=== PATIENT | male | born 1955 | race American Indian/Alaskan Native ===

== ENCOUNTER 2021-05-15 04:40 | Emergency (ER) | payer MEDICARE ==
[2021-05-15 05:08] VITALS: BP 135/79
--- NOTE | 2021-05-15 05:38 | XRay Report ---
ABDOMEN 3 VIEW(S) INDICATION / CLINICAL INFORMATION: Abd pain. PT STATES HE HAD COLONOSCOPY 8 DAYS AGO WHERE THEY REMOV ED POLYPS. PT HAS NOT HAD A BOWEL MOVEMENT SINCE COMPARISON: None available. FINDINGS: TUBES / LINES: None. BOWEL GAS PATTERN: No dilated small bowel. Moderate amount of fecal material throughout the colon. En doscopy clip projects over the lower pelvis possibly in the rectum. FREE AIR / EXTRALUMINAL GAS: None seen. ADDITIONAL FINDINGS: No significant additional findings. CHEST: Visualized chest shows no significant abnormality. IMPRESSION: 1. No bowel obstruction or free air. 2. Moderate amount of fecal material throughout the colon. Signer Name: Hossein Rodriguez MD Signed: 05/15/2021 5:34 AM Workstation Name: [id number]
[2021-05-15 06:04] LABS: Basophils % (Auto) 0.8 % (0.0-1.8); Eosinophils # (Auto) 0.2 K/mm3 (0.0-0.4); Eosinophils % (Auto) 5.7 % (0.0-4.3); Hematocrit 42.2 % (35.5-45.6); Hemoglobin 13.3 gm/dl (11.8-15.2); Lymphocytes # (Auto) 1.7 K/mm3 (1.2-5.4); Lymphocytes % (Auto) 38.9 % (13.4-35.0); Mean Corpuscular HGB Conc 32 % (32-34); Mean Corpuscular Volume 79 fl (84-94); Monocytes # (Auto) 0.4 K/mm3 (0.0-0.8); Monocytes % (Auto) 8.9 % (0.0-7.3); Platelet Count 173 K/mm3 (140-440); Red Blood Count 5.34 M/mm3 (3.65-5.03); Red Cell Distribution Width 14.4 % (13.2-15.2)
[2021-05-15 06:20] LABS: Alanine Aminotransferase 19 units/L (7-56); Albumin 4.4 g/dL (3.9-5); BUN/Creatinine Ratio 15; Blood Urea Nitrogen 15 mg/dL (9-20); Calcium 9.3 mg/dL (8.4-10.2); Hemolysis Index 2
--- NOTE | 2021-05-15 07:35 | Emergency Department Report ---
HPI - General Chief Complaint: Abdominal Pain Time Seen by Provider: 05/15/21 07:14 - HPI HPI: MSE 6 The patient is a 66-year-old male present with a chief complaint of constipation. The patient states he had a colonoscopy performed 05/07/[address] Nina. Patient states he has not had a bowel movement since the procedure. Patient states he tried MiraLAX over the weekend with no results. Patient states he saw his knot cutter yesterday recommended he try magnesium citrate. Patient states he took 2 to 3 ounces of magnesium citrate but has not had a bowel movement. Patient states he is passing gas. Patient admits to nausea but denies vomiting. ED Past Medical Hx - Past Medical History Previous Medical History?: No - Surgical History Past Surgical History?: No - Medications Home Medications: Home Medications Medication Instructions Recorded Confirmed Last Taken Type Polyethylene Glycol/Elect 4,000 ml PO ONCE #1 bottle 05/15/21 Unknown Rx [Golytely] ED Review of Systems ROS: Stated complaint: 9 DAYS POST COLONOSCOPY NO BM NAUSEA Other details as noted in HPI Physical Exam - Physical Exam Vital Signs: Vital Signs 05/15/21 05/15/21 05:03 05:06 Temperature 97.9 F Pulse Rate 58 L 57 L Respiratory 17 Rate Blood Pressure 135/79 [Right] O2 Sat by Pulse 100 99 Oximetry ED Course Vital Signs 05/15/21 05/15/21 05:03 05:06 Temperature 97.9 F Pulse Rate 58 L 57 L Respiratory 17 Rate Blood Pressure 135/79 [Right] O2 Sat by Pulse 100 99 Oximetry - Consultations Consultation #1: 05/15/21 07:33 GI paged ED Medical Decision Making - Lab Data Result diagrams: 05/15/21 05:28 05/15/21 05:28 Laboratory Tests 05/15/21 05/15/21 05:28 05:28 WBC 4.3 L RBC 5.34 H Hgb 13.3 Hct 42.2 MCV 79 L MCH 25 L MCHC 32 RDW 14.4 Plt Count 173 Lymph % (Auto) 38.9 H Braxton % (Auto) 8.9 H Eos % (Auto) 5.7 H Baso % (Auto) 0.8 Lymph # (Auto) 1.7 Braxton # (Auto) 0.4 Eos # (Auto) 0.2 Baso # (Auto) 0.0 Seg Neutrophils % 45.7 Seg Neutrophils # 2.0 Sodium 141 Potassium 4.0 Chloride 103.3 Carbon Dioxide 27 Anion Gap 15 BUN 15 Creatinine 1.0 Estimated GFR > 60 BUN/Creatinine Ratio 15 Glucose 94 Calcium 9.3 Total Bilirubin 0.30 AST 18 ALT 19 Alkaline Phosphatase 121 Total Protein 7.9 Albumin 4.4 Albumin/Globulin Ratio 1.3 - Radiology Data Radiology results: report reviewed (Acute abdominal series x-ray), image reviewed (Acute abdominal series x-ray) interpreted by me: Acute abdominal series x-ray-no free air. Constipation. No air-fluid level [facility] [address] [place] [address] XRay Report Signed Patient: LANCE HOWARD MR#: [id number] : 1955 Acct:[id number] Age/Sex: 66 / M ADM Date: 05/15/21 Loc: ED Attending Dr: Magen luther Physician: NELSY LEMUS DO Date of Service: 05/15/21 Procedure(s): XR abd series w cxr 1V Accession Number(s): [id number] cc: NELSY LEMUS DO Fluoro Time In Minutes: ABDOMEN 3 VIEW(S) INDICATION / CLINICAL INFORMATION: Abd pain. PT STATES HE HAD COLONOSCOPY 8 DAYS AGO WHERE THEY REMOVED POLYPS. PT HAS NOT HAD A BOWEL MOVEMENT SINCE COMPARISON: None available. FINDINGS: TUBES / LINES: None. BOWEL GAS PATTERN: No dilated small bowel. Moderate amount of fecal material throughout the colon. Endoscopy clip projects over the lower pelvis possibly in the rectum. FREE AIR / EXTRALUMINAL GAS: None seen. ADDITIONAL FINDINGS: No significant additional findings. CHEST: Visualized chest shows no significant abnormality. IMPRESSION: 1. No bowel obstruction or free air. 2. Moderate amount of fecal material throughout the colon. Signer Name: Hossein Rodriguez MD Signed: 05/15/2021 5:34 AM Workstation Name: [id number] Transcribed By: SHIRA Dictated By: Manny Rodriguez MD Electronically Authenticated By: Manny Rodriguez MD Signed Date/Time: 05/15/21533 DD/ 2 TD/TT: Print Cancel - Differential Diagnosis Constipation Critical care attestation.: If time is entered above; I have spent that time in minutes in the direct care of this critically ill patient, excluding procedure time. ED Disposition Clinical Impression: Constipation Disposition: 01 HOME / SELF CARE / HOMELESS Is pt being admited?: No Does the pt Need Aspirin: No Condition: Stable Instructions: Constipation, Adult, [id number] Additional Instructions: Return to the emergency department should you develop worsening symptoms, inability to tolerate food or liquids, high fever or any other concerns Prescriptions: Polyethylene Glycol/Elect [Golytely] 4,000 ml PO ONCE #1 bottle Referrals: JORDAN NINA MD [Staff Physician] - 3-5 Days Time of Disposition: 08:14
[2021-05-15] MEDS ORDERED: LACTULOSE 20 GM/30 ML ORAL LIQD PO NR (09:00)
== END 2021-05-15 08:51 | disposition home or self-care (01) ==
LOC: ED 04:40
DX: K59.00 Constipation, unspecified (principal)
CPT/HCPCS: 36415; 74022; 80053; 85025; 99283